=== PATIENT | male | born 1990 | race Caucasian/White ===

== ENCOUNTER 2018-03-01 16:19 | Inpatient (IN) ==
--- NOTE | 2018-03-01 17:02 | XR ---
EXAM DATE: 03/01/2018 5:00 PM EDT AGE/SEX: 27 years / Male INDICATIONS: . Left sided chest pain starting today CLINICAL DATA: This is the patient's initial encounter. Patient reports that signs and symptoms have been present for 1 day and indicates a pain score of 8/10. MEDICAL/SURGICAL HISTORY: . History of right pneumothorax. Right pulmonary blebs. . Right pleu rectomy COMPARISON: No prior exams available for comparison. FINDINGS: There is mild hyperinflation. Heart and mediastinal contours are normal. Lungs are clear. There is a small left apical pneumothorax identified. CONCLUSION: Left apical pneumothorax. Electronically signed by: Cody Chapa MD 03/01/2018 5:01 PM EDT
--- NOTE | 2018-03-01 17:50 | ED ---
HPI General Chief complaint: Respiratory Symptoms Stated complaint: sob Time Seen by Provider: 03/01/18 17:28 History of Present Illness HPI narrative: This patient complains of a dull ache in his left chest. He is not having acute short of breath. He has history of spontaneous right-sided pneumothorax requiring pleurectomy. At this time he is not short of breath. Symptom severity is mild. No alleviating factors. No exacerbating factors. Duration is 6 hours. He was driving when this occurred. Related Data Home Medications Medication Instructions Recorded Confirmed No Known Home Medications 03/01/18 03/01/18 Allergies Allergy/AdvReac Type Severity Reaction Status Date / Time No Known Allergies Allergy Unverified 03/01/18 16:45 Review of Systems ROS: all other systems reviewed are negative [facility] Medical History Medical History History of pneumothorax (Acute) Social History Social History Substance History: No History of Abuse Second Hand Smoke Exposure: No Smoking Status: Never smoker How Often Do You Have a Drink Containing Alcohol: Monthly or less Recent Travel in [facility] within the Last 8 Weeks: No Recent Out of Country Travel within the Last 8 Weeks: No Immunization History Tetanus Immunization: <5 Years Exam Narrative Exam Narrative: GENERAL: Pleasant thin well-developed patient in no apparent distress. SKIN: Focused skin assessment reveals no rash and nodules. Skin is Warm and dry. HEAD: Atraumatic. Normocephalic. EYES: Pupils equal and round. No scleral icterus. No injection or drainage. ENT: No nasal bleeding or discharge. Mucous membranes pink and moist. NECK: Trachea midline. No JVD. CARDIOVASCULAR: Regular rate and rhythm. No murmur appreciated. RESPIRATORY: No accessory muscle use. Clear to auscultation. Breath sounds equal bilaterally. GASTROINTESTINAL: Abdomen soft, non-tender, nondistended. Hepatic and splenic margins not palpable. MUSCULOSKELETAL: No obvious deformities. No clubbing. No cyanosis. No edema. NEUROLOGICAL: Awake and alert. No obvious cranial nerve deficits. Motor grossly within normal limits. Normal speech. PSYCHIATRIC: Appropriate mood and affect; insight and judgment normal. Course Initial Documented Vital Signs Temperature 98.8 F 03/01/18 16:43 Pulse Rate 83 03/01/18 16:43 Respiratory Rate 16 03/01/18 16:43 Blood Pressure 156/80 H 03/01/18 16:43 Pulse Oximetry 100 03/01/18 16:43 Last Documented Vital Signs Temperature 98.8 F 03/01/18 16:43 Pulse Rate 63 03/01/18 17:41 Respiratory Rate 18 03/01/18 17:41 Blood Pressure 133/72 03/01/18 17:41 Pulse Oximetry 100 03/01/18 17:41 Medical Decision Making MDM Narrative Medical decision making narrative: IV placed and labs sent. I reviewed his PA and lateral chest x-ray which shows a small left apical pneumothorax. His vital signs are normal. Room air saturation is 100%. He is not dyspneic or labored. I reviewed the case in detail with thoracic surgeon Dr. Amor. He recommends 23 hour observation in the hospital with repeat chest x-ray tomorrow morning. He will be a biztalk consultant. I reviewed with the hospitalist who will do the observing. Patient is agreeable. Patient says he does not want a chest tube unless it is mandatory. Medical Screen Exam Complete: Yes Emergency Medical Condition: Yes Differential Diagnosis Differential Diagnosis: Pneumothorax, contusion, rib fracture Medical Records Medical records reviewed: Yes I reviewed the patient's medical records. History of spontaneous pneumothorax 10 years ago Lab Data Lab results reviewed: Yes I reviewed the patient's lab results. Imaging Data Radiologist's impression: Chest X-Ray 03/01/18 00:00 CONCLUSION: Left apical pneumothorax. Discharge Plan Physicians Team ED Provider: Paxton Lewis Rxs /Orders / Referrals /Forms Prescriptions: No Action No Known Home Medications RF: 0 Discharge Interventions Interventions: Vital Signs Last Done: 03/01/18 17:41 Status ED Status: With Doctor
[2018-03-01 18:25] LABS: Baso % (Auto) 0.4 % (0.0-2.0); Eos # (Auto) 0.1 th/mm3 (0.0-0.4); Eos % (Auto) 1.3 % (0.0-4.0); Hematocrit 45.7 % (39.0-51.0); Hemoglobin 15.4 gm/dL (13.0-17.0); Lymph # (Auto) 1.1 th/mm3 (1.0-4.8); Lymph % (Auto) 13.6 % (9.0-44.0); Mean Corpuscular HGB Conc 33.7 % (32.0-36.0); Mean Corpuscular Hemoglobin 28.3 pg (27.0-34.0); Mean Corpuscular Volume 84.1 fL (80.0-100.0); Mean Platelet Volume 9.7 fL (7.0-11.0); Mono # (Auto) 0.5 th/mm3 (0.0-0.9); Mono % (Auto) 6.5 % (0.0-8.0); Neut # (Auto) 6.3 th/mm3 (1.8-7.7); Neut % (Auto) 78.2 % (16.0-70.0); Platelet Count 197 th/mm3 (150-450); Red Blood Count 5.43 mil/mm3 (4.50-5.90); Red Cell Distribution Width 14.1 % (11.6-17.2)
[2018-03-01 18:31] LABS: Calcium 9.4 mg/dL (8.5-10.1)
[2018-03-01] MEDS ORDERED: Bisacodyl 10 MG Supp RECTAL PRN (18:47)
[2018-03-01] MEDS ORDERED: Acetaminophen 325 MG Tablet PO PRN (18:47)
--- NOTE | 2018-03-01 19:13 | P.HPIM ---
History of Present Illness Service: [facility] Primary Care Physician: No Primary Care Physician Chief Complaint: Chest pain History of Present Illness: This is a 27-year-old male with past medical history significant for pneumothorax. Patient this morning felt acute chest pain on the left side of his chest that radiated into his back. Feeling short of breath and this occurred. However the shortness of breath quickly resolved. However the pain in his chest continued. Reports that is tolerable with Tylenol Motrin however because of his history was concerned. He presents to the emergency room for further evaluation, and at that time is found to have a left-sided pneumothorax. He was evaluated by cardiothoracic surgeon who recommended observation at this time with no chest tube placement. Patient reports his pain is tolerable at this time he denies any shortness of breath. Denies any nausea or vomiting. - Diagnosis (1) Spontaneous pneumothorax Review of Systems All other systems reviewed negative except as stated in [facility] - History History Provided By: Patient - Medical History Medical History: Medical History (Last Updated 03/01/18 @ 18:52 by Carlos Eduardo Beth MD) History of pneumothorax - Family History Family History: Family History (Last Updated 03/01/18 @ 18:53 by Carlos Eduardo Beth MD) Other Type 2 diabetes mellitus - Tobacco History Second Hand Smoke Exposure: No Smoking Status: Never smoker - Alcohol History How Often Do You Have a Drink Containing Alcohol: Monthly or less - Substance Use History Substance History: No History of Abuse - Travel History Recent Travel in the [place] Within the Last 8 Weeks: No Recent Travel Out of the Country Within the Last 8 Weeks: No - Immunization History Tetanus Immunization: <5 Years Medications and Allergies Active Medications: Active Medications Acetaminophen (Tylenol) 650 mg PO Q4H PRN PRN Reason: Temp > 100.4 Al Hydroxide/Mg Hydroxide (Milk Of Magnesia Liq) 30 ml PO Q12H PRN PRN Reason: Mild Constipation Bisacodyl (Dulcolax Supp) 10 mg RECTAL DAILY PRN PRN Reason: SEVERE CONSITIPATION Lactulose (Lactulose Liq) 30 ml PO DAILY PRN PRN Reason: SEVERE CONSITIPATION Ondansetron HCl (Zofran Inj) 4 mg IV.PUSH Q6H PRN PRN Reason: NAUSEA OR VOMITING Senna/Docusate Sodium (Sherine-Colace) 1 tab PO BID SPENCER Sennosides (Senokot) 17.2 mg PO Q12H PRN PRN Reason: Moderate Constipation Allergies Allergy/AdvReac Type Severity Reaction Status Date / Time No Known Allergies Allergy Unverified 03/01/18 16:45 Home Medications Medication Instructions Recorded Confirmed Type No Known Home Medications 03/01/18 03/01/18 History Exam Vital signs: Vital Signs 03/01/18 16:43 03/01/18 17:41 03/01/18 18:00 Temperature 98.8 F Pulse Rate 83 63 65 Respiratory Rate 18 Blood Pressure 156/80 H 133/72 Pulse Oximetry 100 100 100 Intake & Output 02/28/18 03/01/18 03/01/18 18:59 06:59 18:59 Weight 56.699 kg - Constitutional no acute distress, cooperative - Routine HEENT Exam Head: Present: normocephalic, atraumatic Eye: Present: EOMI, PERRL ENT: Present: mucous membranes moist, external ear normal, TM's clear bilaterally. Absent: sinus tenderness - Routine Neck Exam Present: supple, full ROM. Absent: lymphadenopathy - Routine Chest/Breast/Axilla Exam Chest wall: Present: tenderness Axillae: Absent: lymphadenopathy - Routine Respiratory Exam Present: accessory muscle use, decreased breath sounds (The left upper lobe). Absent: wheezes, crackles - Routine Cardiovascular Exam Present: RRR. Absent: murmur - Routine Abdominal Exam Present: soft, normoactive bowel sounds. Absent: distended - Routine Extremities Exam Present: full ROM. Absent: cyanosis, clubbing, edema - Routine Skin Exam Absent: intact, dry - Routine Neurological Exam Present: alert, oriented X3, CN II-XII intact. Absent: altered mental status Results - Labs CBC & Chem 7: 03/01/18 17:56 03/01/18 17:56 Labs: Short CBC 03/01/18 Range/Units 17:56 WBC 8.0 (4.0-11.0) th/mm3 Hgb 15.4 (13.0-17.0) gm/dL Hct 45.7 (39.0-51.0) % Plt Count 197 (150-450) th/mm3 BMP 03/01/18 17:56 Sodium 142 Potassium 4.0 Chloride 107 Carbon Dioxide 28.0 BUN 13 Creatinine 1.15 Calcium 9.4 - Imaging Impressions Chest X-Ray 03/01/18 00:00 CONCLUSION: Left apical pneumothorax. Caprini VTE Risk Assessment Caprini VTE Risk Assessment: No/Low Risk (score <= 1) Caprini Risk Assessment Model: Point Value = 1 Point Value = 2 Point Value = 3 Point Value = 5 Age 41-60 Minor surgery BMI > 25 kg/m2 Swollen legs Varicose veins or History of unexplained or recurrent spontaneous Oral contraceptives or hormone replacement Sepsis (< 1 month) Serious lung disease, including pneumonia (< 1 month) Abnormal pulmonary function Acute myocardial infarction Congestive heart failure (< 1 month) History of inflammatory bowel disease Medical patient at bed rest Age 61-74 Arthroscopic surgery Major open surgery (> 45 min) Laparoscopic surgery (> 45 min) Malignancy Confined to bed (> 72 hours) Immobilizing plaster cast Central venous access Age >= 75 History of VTE Family history of VTE Factor V Leiden Prothrombin [id number] Lupus anticoagulant Anticardiolipin antibodies Elevated serum homocysteine Heparin-induced thrombocytopenia Other congenital or acquired thrombophilia Stroke (< 1 month) Elective arthroplasty Hip, pelvis, or leg fracture Acute spinal cord injury (< 1 month) Prophylaxis Regimen: Total Risk Factor Score Risk Level Prophylaxis Regimen 0-1 Low Early ambulation 2 Moderate Order ONE of the following: *Sequential Compression Device (SCD) *Heparin 5000 units SQ BID 3-4 Higher Order ONE of the following medications: *Heparin 5000 units SQ TID *Enoxaparin/Lovenox 40 mg SQ daily (WT < 150 kg, CrCl > 30 mL/min) *Enoxaparin/Lovenox 30 mg SQ daily (WT < 150 kg, CrCl > 10-29 mL/min) *Enoxaparin/Lovenox 30 mg SQ BID (WT < 150 kg, CrCl > 30 mL/min) AND/OR *Sequential Compression Device (SCD) 5 or more Highest Order ONE of the following medications: *Heparin 5000 units SQ TID (Preferred with Epidurals) *Enoxaparin/Lovenox 40 mg SQ daily (WT < 150 kg, CrCl > 30 mL/min) *Enoxaparin/Lovenox 30 mg SQ daily (WT < 150 kg, CrCl > 10-29 mL/min) *Enoxaparin/Lovenox 30 mg SQ BID (WT < 150 kg, CrCl > 30 mL/min) AND *Sequential Compression Device (SCD) Assessment and Plan - Assessment (1) Spontaneous pneumothorax Code(s): J93.83 - Other pneumothorax Status: Acute - Plan This is a 27-year-old male with past history significant for pneumothorax on the right side. Being admitted at this time for left-sided pneumothorax. Patient is been evaluated by cardiothoracic surgeon who has determined that the patient does not require chest tube at this time. He will be monitored as an outpatient. 1. Pneumothorax left-sided -Consult the cardiothoracic surgeon, recommendations appreciated -Oxygenation per protocol -Pain control with Tylenol as needed -Close monitoring of vitals especially oxygen DVT prophylaxis with SCDs due to concern of eventual need for chest tube placement Code Status: Full code Discussed Condition With: Discussed with the ER Discharge Planning: Anticipate discharge home once cleared
[2018-03-01] MEDS: Senna/Docusate Sodium 8.6/50 MG Tablet PO SCH (21:11)
[2018-03-02 03:58] LABS: Baso % (Auto) 0.5 % (0.0-2.0); Eos # (Auto) 0.2 th/mm3 (0.0-0.4); Eos % (Auto) 3.1 % (0.0-4.0); Hematocrit 42.2 % (39.0-51.0); Lymph # (Auto) 1.9 th/mm3 (1.0-4.8); Lymph % (Auto) 28.6 % (9.0-44.0); Mean Corpuscular HGB Conc 33.1 % (32.0-36.0); Mean Corpuscular Hemoglobin 27.9 pg (27.0-34.0); Mean Corpuscular Volume 84.1 fL (80.0-100.0); Mean Platelet Volume 9.1 fL (7.0-11.0); Mono # (Auto) 0.6 th/mm3 (0.0-0.9); Mono % (Auto) 9.2 % (0.0-8.0); Neut # (Auto) 3.9 th/mm3 (1.8-7.7); Neut % (Auto) 58.6 % (16.0-70.0); Platelet Count 174 th/mm3 (150-450); Red Blood Count 5.02 mil/mm3 (4.50-5.90); Red Cell Distribution Width 13.6 % (11.6-17.2); White Blood Count 6.6 th/mm3 (4.0-11.0)
[2018-03-02 04:15] LABS: Albumin 4.1 g/dL (3.4-5.0); Anion Gap 8 meq/L (5-15); Aspartate Aminotransferase 20 U/L (15-37); Blood Urea Nitrogen 14 mg/dL (7-18); Calcium 8.8 mg/dL (8.5-10.1); Carbon Dioxide 28.2 meq/L (21.0-32.0); Chloride 107 meq/L (98-107); Glomerular Filtration Rate 76 mL/min (>89); Glucose,Random 91 mg/dL (74-106); Potassium 3.8 meq/L (3.5-5.1); Sodium 143 meq/L (136-145)
[2018-03-02 04:17] LABS: Alanine Aminotransferase 26 U/L (12-78)
[2018-03-02 04:19] LABS: Alkaline Phosphatase 39 U/L (45-117); Total Protein 6.9 g/dL (6.4-8.2)
[2018-03-02] MEDS: Senna/Docusate Sodium 8.6/50 MG Tablet PO SCH (08:37)
--- NOTE | 2018-03-02 10:51 | XR ---
EXAM DATE: 03/02/2018 10:43 AM EDT AGE/SEX: 27 years / Male INDICATIONS: . Evaluate pneumothorax. CLINICAL DATA: This is the patient's subsequent encounter. Patient reports that signs and symptoms h ave been present for 2 days and indicates a pain score of 2/10. MEDICAL/SURGICAL HISTORY: . History of pneumothorax with pleurectomy. None. COMPARISON: [facility] [place] 2[place] AP&LAT, 03/01/2018. . FINDINGS: Today's exam is compared to the prior study of 03/01/2018. There is a stable small left apical pneumot horax with approximately 2.3 cm of separation at the apex. Otherwise the lung navarrete remain well aera cornelio. No pleural effusions are demonstrated. The bony structures are stable. The heart size is stable. CONCLUSION: Stable small persistent left apical pneumothorax with approximately 2.3 cm of separation. Electronically signed by: Andrea Brannon MD 03/02/2018 10:49 AM EDT
[2018-03-02 11:42] VITALS: RESP 20; TEMP 98.2
--- NOTE | 2018-03-02 12:03 | P.PN ---
Subjective Interval history: Visit spontaneous pneumothorax. Patient seen and examined today. States that he is doing well. States that the pain is a lot better keeps on going down now his only has 2/10. States breathing okay. States that he is not dizzy. Denies pain and discomfort. Denies chest pain, palpitations, headaches, dizziness. Denies fevers, chills, n/v/d. Denies hematuria, dysuria. Physical Exam Vital signs: Vital Signs 03/01/18 16:43 03/01/18 17:41 03/01/18 18:00 Temperature 98.8 F Pulse Rate 83 63 65 Respiratory Rate 16 18 18 Blood Pressure 156/80 H 133/72 Pulse Oximetry 100 100 100 03/01/18 20:00 03/01/18 21:23 03/02/18 00:00 Temperature 98.0 F 97.8 F Pulse Rate 67 75 Respiratory Rate 14 14 Blood Pressure 116/65 116/63 Pulse Oximetry 100 03/02/18 04:00 03/02/18 07:58 03/02/18 08:07 Temperature 97.6 F 97.7 F Pulse Rate 75 64 Respiratory Rate 16 Blood Pressure 106/59 L 113/72 Pulse Oximetry 100 100 97 03/02/18 11:41 Temperature 98.2 F Pulse Rate 58 L Respiratory Rate 20 Blood Pressure 115/69 Pulse Oximetry 99 Intake & Output 03/01/18 03/02/18 03/02/18 18:59 06:59 18:59 Weight 56.699 kg 56.699 kg Other: # Voids 2 Date of Last Bowel Movement 03/01/18 Weight On Admission 56.699 kg Narrative: GENERAL: This is a thin appearing, well developed, in no apparent distress. SKIN: Warm and dry. HEENT: Normocephalic. Pupils equal round and reactive. Nose without bleeding. Airway patent. NECK: Trachea midline. Supple. CARDIOVASCULAR: Regular rate and rhythm without murmurs, gallops, or rubs. RESPIRATORY: Diminished bases. No wheezes, rales, or rhonchi. GASTROINTESTINAL: Abdomen soft, non-tender, nondistended. Bowel Sounds normoactive x4. MUSCULOSKELETAL: Extremities without clubbing, cyanosis, or edema. NEUROLOGICAL: Awake and alert. Oriented to time, place, person. No focal neuro deficit. Moves all extremities. Normal speech. Results - Labs CBC & Chem 7: 03/02/18 03:30 03/02/18 03:30 Laboratory Results - last 24 hr 03/01/18 03/01/18 03/02/18 17:56 17:56 03:30 WBC 8.0 6.6 RBC 5.43 5.02 Hgb 15.4 14.0 Hct 45.7 42.2 MCV 84.1 84.1 MCH 28.3 27.9 MCHC 33.7 33.1 RDW 14.1 13.6 Plt Count 197 174 MPV 9.7 9.1 Neut % (Auto) 78.2 H 58.6 Lymph % (Auto) 13.6 28.6 Mckinley % (Auto) 6.5 9.2 H Eos % (Auto) 1.3 3.1 Baso % (Auto) 0.4 0.5 Neut # (Auto) 6.3 3.9 Lymph # (Auto) 1.1 1.9 Mckinley # (Auto) 0.5 0.6 Eos # (Auto) 0.1 0.2 Baso # (Auto) 0.0 0.0 WBC Differential . . Differential Comment Auto diff final Auto diff final Sodium 142 Potassium 4.0 Chloride 107 Carbon Dioxide 28.0 Anion Gap 7 BUN 13 Creatinine 1.15 Estimated GFR 76 L Random Glucose 93 Calcium 9.4 Total Bilirubin AST ALT Alkaline Phosphatase Total Protein Albumin 03/02/18 03:30 WBC RBC Hgb Hct MCV MCH MCHC RDW Plt Count MPV Neut % (Auto) Lymph % (Auto) Mckinley % (Auto) Eos % (Auto) Baso % (Auto) Neut # (Auto) Lymph # (Auto) Mckinley # (Auto) Eos # (Auto) Baso # (Auto) WBC Differential Differential Comment Sodium 143 Potassium 3.8 Chloride 107 Carbon Dioxide 28.2 Anion Gap 8 BUN 14 Creatinine 1.15 Estimated GFR 76 L Random Glucose 91 Calcium 8.8 Total Bilirubin 1.6 H AST 20 ALT 26 Alkaline Phosphatase 39 L Total Protein 6.9 Albumin 4.1 - Imaging Impressions Chest X-Ray 03/01/18 00:00 CONCLUSION: Left apical pneumothorax. Chest X-Ray 03/02/18 00:00 CONCLUSION: Stable small persistent left apical pneumothorax with approximately 2.3 cm of separation. Assessment and Plan - Assessment (1) Spontaneous pneumothorax Code(s): J93.83 - Other pneumothorax Status: Acute - Plan This is a 27-year-old male with past medical history significant for pneumothorax felt acute chest pain on the left side of his chest that radiated into his back associated with shortness of breath Pneumothorax left-sided -Consult the cardiothoracic surgeon, seen by Dr. Amor and suggested observation for now. Does not require any chest tube. -Oxygenation per protocol, incentive spirometer. -Pain control with Tylenol as needed -Discussed and advised patient continued to not do scuba diving, skydiving, high-pressure activities including heavy lifting. DVT prophylaxis with SCDs due to concern of eventual need for chest tube placement Discharge patient to home Condition on discharge: Improved Regular Diet as tolerated Ad Beverly activity Rx written: Tylenol for pain as needed Follow-up with primary care physician Code Status: Full code Discussed Condition With: Patient, nursing Discharge Planning: Plan to DC home today when clinically improved
--- NOTE | 2018-03-02 14:47 | CT ---
EXAM DATE: 03/02/2018 2:23 PM EDT AGE/SEX: 27 years / Male INDICATIONS: Pneumothorax CLINICAL DATA: This is the patient's initial encounter. Patient reports that signs and symptoms have been present for 1 day and indicates a pain score of 3/10. MEDICAL/SURGICAL HISTORY: . pneumothorax None. RADIATION DOSE: 5.47 CTDI (mGy) COMPARISON: [facility], CHEST 2V AP&LAT, 03/02/2018. . TECHNIQUE: Multiple contiguous axial images were obtained through the chest without contrast. Image s were obtained in suspended respiration using multiple row detector helical technique. Using automa cornelio exposure control and adjustment of the mA and/or kV according to patient size, radiation dose was kept as low as reasonably achievable to obtain optimal diagnostic quality images. DICOM format imag e data is available electronically for review and comparison. FINDINGS: Lungs: The lungs are symmetrically aerated. No infiltrates or suspicious nodular densities are seen . No acute pulmonary infiltrates are demonstrated. There is a small left pneumothorax which has been noted on prior chest x-rays. There is no mass effect or midline shift. Mediastinum: There is good visualization of the great vessels of the middle mediastinum. No evidenc e of mediastinal or hilar adenopathy/mass. Pleurae: No evidence of focal thickening or pleural effusion. Axillae: Unremarkable. Bony Structures: Unremarkable. Miscellaneous: The examination was extended to include the upper abdomen, and both adrenal glands ar e normal in size and configuration. CONCLUSION: 1. Small left pneumothorax. Electronically signed by: Andrea Brannon MD 03/02/2018 2:46 PM EDT
[2018-03-02 16:33] VITALS: BP 125/64; PULSE 57; O2SAT 100
--- NOTE | 2018-03-02 20:22 | MB ---
cc: Vanessa Watts DATE: 03/02/2018 HISTORY OF PRESENT ILLNESS: A 27-year-old male, presented to the emergency room yesterday left-sided chest pain that radiated to his back, he felt short of breath. The pain continued to stay. They did a chest x-ray and at that time he was found to have a small left-sided pneumothorax. We were consulted to evaluate for possible chest tube placement. The patient has a history of prior pneumothorax spontaneous back in 2007. The patient had undergone right video-assisted thoracoscopic surgery with bleb resection and wedge resection of the right upper lobe pleurectomy 06/26/2008. He did well postoperatively. PAST MEDICAL HISTORY: Includes a right pneumothorax. PAST SURGICAL HISTORY: Include as above. ALLERGIES: THE PATIENT HAS NO KNOWN ALLERGIES. MEDICATIONS: Takes no home medication. FAMILY HISTORY: Diabetes. SOCIAL HISTORY: The patient is . Rare alcohol. No tobacco or illicit drugs. REVIEW OF SYSTEMS: GENERAL: No night sweats, fever, heat and cold intolerance. SKIN: No psoriasis, itching or hives. HEENT: No blurred vision, hearing loss. RESPIRATORY: As above in the HPI. CARDIOVASCULAR: As above in the HPI. GASTROINTESTINAL: No diarrhea or vomiting. GENITOURINARY: No burning, frequency, urgency. CENTRAL NERVOUS SYSTEM: No history of TIA, CVA or seizure disorder. ENDOCRINOLOGY: No diabetes or hypothyroidism. PHYSICAL EXAMINATION: VITAL SIGNS: Blood pressure 120/60, heart rate is 58, afebrile, O2 saturation 99 on room air. GENERAL: The patient is awake, alert, in no acute distress. HEENT: Head is normocephalic, atraumatic. Pupils equal and reactive. Oral mucosa pink, moist. NECK: Supple. No JVD. CARDIOVASCULAR: Sounds S1, S2. Regular rate and rhythm. No audible rubs, murmurs, or gallops. LUNGS: Clear to auscultation. No wheezes, rales or rhonchi. ABDOMEN: Soft, nontender. No masses or organomegaly. EXTREMITIES: No cyanosis, clubbing, or edema. LABORATORY DATA: Shows hemoglobin 14, hematocrit of 42, white cell count of 6.6, platelet count of 174. Sodium 143, potassium 3.8, BUN of 14, creatinine 1.15. RADIOLOGICAL EXAM: Includes a chest CT which did show small left pneumothorax, no infiltrates or suspicious nodular densities. No mass or midline shift. No mention of any blebs. IMPRESSION: This is a patient with a history of a right spontaneous pneumothorax in 2007 with status post right video-assisted thoracoscopic surgery bleb wedge resection, now with a spontaneous left pneumothorax, small in nature. The patient is stable at this time. No surgical intervention at this time unless the patient develops further discomfort, shortness of breath, enlarging pneumothorax. He will follow up with Dr. Lauri Amor in 3 weeks. NATHALY Davison MD JRT/ct , 03:18 PM , 03:28 PM
== END 2018-03-02 16:45 | disposition home or self-care (01) ==
LOC: NEPE 16:19 → NEDA 16:19 → NEPFCDU 20:02
PROVIDERS: ADMIT Hospitalist; ATTEND Hospitalist